=== PATIENT | female | born 1980 | race Caucasian/White ===

== ENCOUNTER 2020-06-16 11:14 | Emergency (ER) | payer SELFPAY ==
[~2020-06-16] VITALS: Ht 144.8 cm; Wt 67.1 kg
[2020-06-16 11:27] VITALS: Ht 144.8 cm; Wt 67.1 kg
[2020-06-16 12:33] LABS: PLATELET COUNT 346 x10^3mcL (130-400); RED CELL DISTRIBUTION WIDTH 12.7 % (11.5-14.5)
[2020-06-16 12:46] LABS: CALCIUM 8.6 mg/dL (8.5-10.1); CARBON DIOXIDE 26.2 mmol/L (21-32); CHLORIDE SERUM 104 mmol/L (98-107); GFR1 > 60 mL/min; GLUCOSE SERUM 106 mg/dL (74-106); POTASSIUM SERUM 3.8 mmol/L (3.5-5.1); SODIUM SERUM 137 mmol/L (136-145)
[2020-06-16 12:50] LABS: ALBUMIN 3.6 g/dL (3.4-5.0); ALKALINE PHOSPHATASE 97 U/L (46-116); ALT/SGPT 31 U/L (14-59); AMYLASE 58 U/L (25-115); AST/SGOT 15 U/L (15-37); BILIRUBIN TOTAL 0.37 mg/dL (0.20-1.00); LIPASE 137 IU/L (73-393); TOTAL PROTEIN, SERUM 7.3 g/dL (6.4-8.2)
[2020-06-16 13:09] LABS: microscopic required? YES; urine erythrocyte 3+ (NEGATIVE)
[2020-06-16 17:08] VITALS: BP 115/69
== END 2020-06-16 17:08 | disposition home or self-care (01) ==
LOC: ED 11:14
PROVIDERS: Specialist
DX: N83.292 Other ovarian cyst, left side (principal)
CPT/HCPCS: J1885